=== PATIENT | female | born 1945 | race Caucasian/White ===

== ENCOUNTER 2019-07-02 17:11 | Inpatient (IN) ==
--- NOTE | 2019-07-02 17:41 | PROVIDER DOCUMENTATION ---
HPI-Rash/Wound/ReCheck - General Chief Complaint: Laceration[s] Stated Complaint: L-FINGER CUT/SCISSORS Time Seen by Provider: 07/02/19 17:32 Source: patient Allergies/Adverse Reactions: Allergies Allergy/AdvReac Type Severity Reaction Status Date / Time codeine [Codeine] Allergy ANAPHYLAXIS Verified 07/02/19 21:54 seafood Allergy ANAPHYLAXIS Uncoded 07/02/19 21:54 Home Medications: Home Medication List Medication Instructions Recorded Confirmed Last Taken Type Aspirin 81 mg PO DAILY 02/08/18 07/02/19 Unknown History Doxazosin Mesylate 2 mg PO DAILY 02/08/18 07/02/19 Unknown History Gabapentin 300 mg PO BID 02/08/18 07/02/19 Unknown History Tramadol HCl 50 mg PO Q6H PRN PRN 02/08/18 07/02/19 Unknown History Ropinirole [Requip] 2 mg PO QHS tablet 02/14/18 07/02/19 Unknown Rx Alendronate Sodium [Fosamax] 70 mg PO DIRECTED 07/02/19 07/02/19 06/28/19 08:00 History Celecoxib 200 mg PO DAILY 07/02/19 07/02/19 Unknown History Diphenhydramine [Benadryl] 25 mg PO Q4H PRN PRN 07/02/19 07/02/19 Unknown History Dulaglutide [Trulicity] 0.75 mg SQ DIRECTED 07/02/19 07/02/19 06/28/19 08:00 History Furosemide [Lasix] 20 mg PO DAILY 07/02/19 07/02/19 Unknown History Hydrochlorothiazide 25 mg PO DAILY 07/02/19 07/02/19 Unknown History Metoclopramide [Reglan] 10 mg PO BID 07/02/19 07/02/19 Unknown History Multivitamin [Multi-Vitamin Daily] 1 ea PO DAILY 07/02/19 07/02/19 Unknown History Omeprazole 40 mg PO DAILY 07/02/19 07/02/19 Unknown History Pravastatin Sodium 40 mg PO DAILY 07/02/19 07/02/19 Unknown History - History of Present Illness-Dermatology Nature of Presenting Problem: Patient is a 73yo F who presents for a laceration to L hand 2nd finger, which occurred just [employer]. Reports she cut her finger on scissors. States she was having difficulty stopping bleeding d/t ASA usage. Reports she is UTD on Tetanus. Bleeding controlled upon examination. Location: reports: hands (L 2nd finger) Quality: reports: stinging Severity: reports: mild Onset/Duration: reports: just prior to arrival Timing: reports: still present Context/Associated Symptoms: reports: laceration Identifiable cause?: Yes (scissors) Locality of Occurance: Home Similar Symptoms Previously?: No Recently seen or treated by another doctor?: No Review of Systems - Adult - REVIEW OF SYSTEMS - ADULT Constitutional: reports: no symptoms reported. denies: chills, fever Eyes: reports: no symptoms reported Ears, Nose, Mouth & Throat: reports: no symptoms reported Cardiovascular: reports: no symptoms reported. denies: chest pain, palpitations Respiratory: reports: no symptoms reported. denies: cough, shortness of breath Gastrointestinal: reports: no symptoms reported Genitourinary: reports: no symptoms reported Musculoskeletal: reports: no symptoms reported Integumentary: reports: see HPI, skin sores/ulcer Neurological: reports: no symptoms reported Psychiatric: reports: no symptoms reported Endocrine: reports: no symptoms reported Past History - Adult - PAST MEDICAL HISTORY-ADULT Review of Records: reports: Nursing Assessment Review, Medications Reviewed, Social history reviewed & non-contributory. Major Childhood Illnesses: reports: denies history Cardiovascular: reports: HTN Respiratory: reports: asthma, COPD Gastrointestinal: reports: denies history Obstetrical/Gynecological: reports: other (breast cancer) Genitourinary: reports: denies history Musculoskeletal: reports: denies history Neurological: reports: CVA, Seizures/Epilepsy Psychiatric: reports: anxiety, psychiatric problems Endocrine/Immune: reports: Diabetes Other Conditions: reports: denies history - PRIOR SURGERIES/PROCEDURES Surgical/Procedure History: reports: , tonsillectomy, breast (reduction), other (mastectomy) - IMMUNIZATION STATUS Childhood Immunizations: See Nurse Assessment Flu Vaccine: See Nurse Assessment - FAMILY HISTORY Family History: reviewed, not pertinent - SOCIAL HISTORY Smoking: denies, non-smoker Physical Exam-General - PHYSICAL EXAM-ADULT Initial Vital Signs Reviewed: Yes - CONSTITUTIONAL General Appearance: appears well, alert, no apparent distress. negative: lethargic, slow to respond, obtunded - EYES Eyes: PERRL/EOMI, pink conjunctivae. negative: EOM palsy, scleral icterus - HEAD, EARS, NOSE, MOUTH & THROAT HENMT: normocephalic/atraumatic, moist mucous membranes. negative: angioedema - NECK Neck: full range of motion, supple, normal inspection - RESPIRATORY Respiratory: chest non-tender, lungs clear, normal breath sounds, no pleuratic chest pain, no respiratory distress, no accessory muscle use. negative: crackles, rales, rhonchi, stridor, wheezing - CARDIOVASCULAR Cardiovascular: tachycardia (148) - MUSCULOSKELETAL Back Exam: normal inspection Extremity: normal range of motion, normal gait, tenderness (L second finger pad) Peripheral Pulses: radial (R): 2+, radial (L): 2+ - SKIN Integumentary: normal color, warm/dry, laceration(s) (0.5cm laceration to L 2nd finger pad with bleeding controlled). negative: cyanosis, jaundice, pallor - NEUROLOGIC Neurologic: grossly normal. negative: abnormal gait, aphasia, EOM palsy - PSYCHIATRIC Psych/Mental Status: normal mood/affect, normal thought content, normal thought process, oriented x 3 Progress - PLAN OF CARE/RESULTS Progress/Plan/Lab Results: Vital Signs - 8 hr 07/02/19 17:21 07/02/19 18:24 07/02/19 19:25 Temperature 97.8 F Pulse Rate 148 H 146 H 146 H Respiratory Rate 18 19 20 Blood Pressure 162/96 170/135 168/108 O2 Sat by Pulse Oximetry 96 96 95 07/02/19 19:26 07/02/19 19:30 07/02/19 19:45 Temperature Pulse Rate 143 H 146 H 146 H Respiratory Rate 21 18 21 Blood Pressure O2 Sat by Pulse Oximetry 96 93 L 94 L 07/02/19 20:00 07/02/19 20:12 07/02/19 20:15 Temperature Pulse Rate 144 H 120 H 141 H Respiratory Rate 21 17 17 Blood Pressure 154/111 O2 Sat by Pulse Oximetry 95 95 93 L 07/02/19 20:30 07/02/19 20:31 07/02/19 20:45 Temperature Pulse Rate 122 H 117 H 145 H Respiratory Rate 28 H 23 20 Blood Pressure 141/101 O2 Sat by Pulse Oximetry 93 L 93 L 96 07/02/19 20:59 07/02/19 21:01 07/02/19 21:15 Temperature Pulse Rate 143 H 143 H 143 H Respiratory Rate 22 24 Blood Pressure 141/102 O2 Sat by Pulse Oximetry 95 95 95 07/02/19 21:45 07/02/19 21:46 Temperature Pulse Rate 149 H 152 H Respiratory Rate 17 25 H Blood Pressure 129/106 O2 Sat by Pulse Oximetry 95 95 Laboratory Results - last 24 hr 07/02/19 07/02/19 07/02/19 19:27 19:27 19:27 WBC 8.02 RBC 4.35 Hgb 12.0 Hct 37.5 MCV 86.2 MCH 27.6 MCHC 32.0 L RDW Std Deviation 13.5 Plt Count 244 MPV 9.4 Immature Gran % (Auto) 0.7 H Neut % (Auto) 62.3 Lymph % (Auto) 26.7 [place] % (Auto) 6.9 Eos % (Auto) 3.0 Baso % (Auto) 0.4 Immature Gran # (Auto) 0.06 H Neut # (Auto) 5.00 Lymph # (Auto) 2.14 [place] # (Auto) 0.55 Eos # (Auto) 0.24 Baso # (Auto) 0.03 Sodium 138 Potassium 5.4 H Chloride 96 L Carbon Dioxide 27 Anion Gap 15 BUN 31 H Creatinine 2.0 H Estimated GFR/1.73 m2 25 BUN/Creatinine Ratio 16 Glucose 132 H POC Glucose Calculated Osmolality 284 Calcium 9.4 Total Bilirubin 0.33 AST 44 H ALT 20 Alkaline Phosphatase 71 Troponin T High Sens 29 H* [id number] Pept Total Protein 7.1 Albumin 4.1 Globulin 3.0 Albumin/Globulin Ratio 1.4 TSH 07/02/19 07/02/19 07/02/19 19:27 19:27 20:08 WBC RBC Hgb Hct MCV MCH MCHC RDW Std Deviation Plt Count MPV Immature Gran % (Auto) Neut % (Auto) Lymph % (Auto) [place] % (Auto) Eos % (Auto) Baso % (Auto) Immature Gran # (Auto) Neut # (Auto) Lymph # (Auto) [place] # (Auto) Eos # (Auto) Baso # (Auto) Sodium Potassium Chloride Carbon Dioxide Anion Gap BUN Creatinine Estimated GFR/1.73 m2 BUN/Creatinine Ratio Glucose POC Glucose 152 H Calculated Osmolality Calcium Total Bilirubin AST ALT Alkaline Phosphatase Troponin T High Sens [id number]-Kfhleoemyik Pept 677 H Total Protein Albumin Globulin Albumin/Globulin Ratio TSH 1.14 Orders Category Date Time Status Cardiac Monitoring DIRECTED Care 07/02/19 18:14 Active FSBS [Finger Stick Blood Sugar (ED)] DIRECTED Care 07/02/19 18:15 Active Laceration Set up DIRECTED Care 07/02/19 19:15 Active Repeat Vital Signs .Heart Rate Care 07/02/19 17:39 Active Update & Confirm Home Medicati ROUTINE Care 07/02/19 20:23 Active CHEST-2 VIEWS [RAD] Stat Exams 07/02/19 18:20 Completed CBC WITH ELECTRONIC DIFF [HEME] Stat Lab 07/02/19 19:27 Completed COMPREHENSIVE METABOLIC PANEL [CHEM] Stat Lab 07/02/19 19:27 Completed PRO B-NATRIURETIC PEPTIDE Stat Lab 07/02/19 19:27 Completed TROPONIN T HIGH SENSITIVITY Stat Lab 07/02/19 19:27 Completed TSH Stat Lab 07/02/19 19:27 Completed Digoxin [Lanoxin] Med 07/02/19 20:46 Discontinued 125 microgm IV ONCE ONE Diltiazem [Cardizem] Med 07/02/19 20:23 Discontinued 10 mg IV NOW ONE Furosemide [Lasix] Med 07/02/19 20:19 Discontinued 40 mg IV NOW ONE Lidocaine 1% Pf [Xylocaine-Mpf 1%] Med 07/02/19 19:15 Discontinued 5 ml INJ NOW ONE Metoprolol [Lopressor] Med 07/02/19 20:11 Discontinued 5 mg .ROUTE .STK-MED ONE Metoprolol [Lopressor] 10 mg Med 07/02/19 19:58 Discontinued 0.9% Sodium Chloride Inj [Ns] 50 ml IV NOW EKG [EKG] Stat Ther 07/02/19 18:02 Draft Transfer/Admit Order [TRANSFER] Routine Transfer 07/02/19 20:49 Ordered 1820: Patient's initial triage HR was 148 and thought to be an error. Rechecked HR is 148. BP slightly elevated. Patient reports she feels completely fine, other than her finger hurting from laceration. Denies CP, SOB, palpitations, n/v. EKG ordered and patient moved to main ED. Lab results, plan of care, and need for admission discussed with patient who agrees with and verbalizes understanding. Patient discussed with Dr. Cavazos who recommends 10mg IV Metoprolol for rate control and 40mg IV Lasix for hyperkalemia. Result Diagrams: 07/02/19 19:27 07/02/19 19:27 - REASSESSMENT Reassessment #1 Time Reassessed: 20:00 Status: unchanged Reassessment Comment: HR decreased to 139bpm post Metoprolol - XRAY 1 XRAY: Bilateral XRAY Study: Chest Impression: See EMR Report ([facility] - [address], [address], [place] [address] [facility] - [address] , [place] [address] Department of Imaging Patient: SAGAR ARMANDO Date: 07/02/19MR#: [id number] : 8ADM Status: PRE ERAcct#: [id number] Age/Sex: 73/FRoom/Bed: Loc: ED Ordering Physician: Ghada Rodriguez Family Physician: Fazal Aden MD Reason for Procedure: Tachycardia; diminised breath sounds R Signed EXAM: CHEST-2 VIEWS HISTORY: Tachycardia; diminised breath sounds R TECHNIQUE: Chest two views COMPARISON: 02/11/2018 FINDINGS: The lungs are hyperexpanded. The heart is mildly enlarged. The vessels are not distended. There are no infiltrates. No pleural effusions. There are surgical clips in the left axilla. IMPRESSION: Cardiomegaly Electronically signed by Ok Olmos 07/02/2019 6:50 PM 07/02/19 1850 Interpreting Physician: Ok Olmos MD Dictated Date/Time: 07/02/19 1849 cc: Ghada Parr; Fazal Aden MD) - CONSULTS/PCP/HOSPITALIST Notification #1 *Consult/PCP/Hospitalist*: Sariah Sharmaist Time Discussed: 20:25 Reason/Comments: Tachycardia; hyperkalemia Consult Disposition: Admit (Give 10mg IV Cardizem, update home meds, order TSH) Procedures - LACERATION/WOUND REPAIR/FB Left Finger Wound Location: Other: 2nd Wound Length: 0.5cm Wound's Depth, Shape: irregular (curved) Wound Explored/Foreign Body: clean Irrigated with Saline?: Yes Prepped with: Hibiclens Anesthetic: 1%, Lidocaine/Xylocaine Volume of Anesthetic (ml's): 2 Wound Debrided: minimal Wound Repaired with: Sutures Suture Size/Type: 5.0, Non-Absorbable, Nylon Number of Sutures: 1 Layer Closure?: No Sterile Dressing Applied?: Yes Splint Applied?: No Sling Applied?: No Post Procedure Neurovascular Exam: Intact Departure - Departure Date of Disposition Decision: 07/02/19 Time of Disposition Decision: 20:27 DIAGNOSIS: History of anticoagulant use, Cardiomegaly, Hyperkalemia, Renal insufficiency Finger laceration Qualifiers: Encounter type: initial encounter Finger: index finger Damage to nail status: without damage Foreign body presence: without foreign body Laterality: left Qualified Code(s): S61.211A - Laceration without foreign body of left index finger without damage to nail, initial encounter CHF (congestive heart failure) Qualifiers: Heart failure type: unspecified Heart failure chronicity: acute Qualified Code(s): I50.9 - Heart failure, unspecified Disposition: ADMITTED INPATIENT 09 Certified Medical Emergency: Emergent Condition: Stable - Critical Care Note This patient required my direct & personal management of CC.: No Attestation - Physician/ SIMONA Attestation Patient care was provided by Advanced Practice Provider:: Yes Advanced Practice Provider:: Ghada Parr Advanced Practice Provider documentation review:: The Mid-level provider documentation, treatment plan and medical decision making was reviewed by the physician who agrees with all treatment and medical decision making by the MLP. The physician spent face to face time with patient:: No Advanced Practice Provider documentation review:: Supervising physician onsite and consulted in the evaluation and care of this patient. The physician did not have a face to face encounter with the patient.
--- NOTE | 2019-07-02 18:52 | Diag Imaging Result Doc PS360 ---
EXAM: CHEST-2 VIEWS HISTORY: Tachycardia; diminised breath sounds R TECHNIQUE: Chest two views COMPARISON: 02/11/2018 FINDINGS: The lungs are hyperexpanded. The heart is mildly enlarged. The vessels are not distended. There are no infiltrates. No pleural effusions. There are surgical clips in the left axilla. IMPRESSION: Cardiomegaly Electronically signed by Ok Olmos 07/02/2019 6:50 PM
[2019-07-02] MEDS ORDERED: XYLOCAINE-MPF 1% INJ ONE (19:15)
--- NOTE | 2019-07-02 19:29 | EKG Report ---
Test Performed on : 07/02/2019 6:07:14 PM Test Reason : tachycardia Blood Pressure : / mmHG Vent. Rate : 146 BPM Atrial Rate : 146 BPM P-R Int : 118 ms QRS Dur : 080 ms QT Int : 290 ms P-R-T Axes : 084 039 095 degrees QTc Int : 451 ms Sinus tachycardia. Nonspecific ST and T wave abnormality Abnormal ECG When compared with ECG of 27-JUL-2015 22:27, Sinus rhythm. has replaced Junctional rhythm. Vent. rate has increased BY [address] now depressed in Lateral leads Nonspecific T wave abnormality now evident in Inferior leads Unconfirmed Result
[2019-07-02 19:37] LABS: BASO# 0.03 X1000 (0.0-0.2); BASO% 0.4 % (0.0-0.8); EOS# 0.24 X1000 (0.0-0.7); HEMATOCRIT 37.5 % (37.0-47.0); IMM GRAN# 0.06 X1000 (0.0-0.04); IMM GRAN% 0.7 % (0.0-0.5); LYMPH# 2.14 X1000 (1.2-3.4); LYMPH% 26.7 % (20.5-51.1); MCH 27.6 PG (27-31); MCV 86.2 FL (81-99); MONO# 0.55 X1000 (0.11-0.59); MONO% 6.9 % (1.7-9.3); MPV 9.4 FL (7.4-10.4); NEUT% 62.3 % (42.2-75.2); PLT 244 X1000 (130-400); RBC 4.35 XMIL (4.2-5.4); RDW 13.5 % (11.5-14.5); WBC 8.02 X1000 (4.8-10.8)
[2019-07-02 19:58] LABS: ALB/GLOB RATIO 1.4; ALBUMIN 4.1 g/dL (3.5-5.0); CALCIUM 9.4 mg/dL (8.8-10.2); POTASSIUM 5.4 mmol/L (3.5-5.1); TOTAL BILIRUBIN 0.33 mg/dL (0.20-1.00); TOTAL PROTEIN 7.1 g/dL (6.3-8.3)
[2019-07-02] MEDS ORDERED: LOPRESSOR 10 MG in NS 50 ML IV ONE (19:58)
[2019-07-02] MEDS ORDERED: LOPRESSOR ONE (20:11)
[2019-07-02] MEDS ORDERED: LASIX IV ONE (20:19)
[2019-07-02] MEDS ORDERED: CARDIZEM IV ONE (20:23)
[2019-07-02] MEDS ORDERED: LANOXIN IV ONE (20:46)
--- NOTE | 2019-07-02 21:58 | HISTORY AND PHYSICAL ---
REASON FOR ADMISSION: Persistent tachycardia. HISTORY OF PRESENT ILLNESS: Ms. Zainab Bonilla is a 73-year-old woman with past medical history of prior CVAs x2, severe sleep apnea on CPAP, hypertension with chronic kidney disease, type 2 diabetes, breast cancer and a history of recurrent UTIs. She comes in today primarily to get a laceration of her 2nd finger, which was sustained by accidentally catching the said finger with a pair of scissors while sewing. During her evaluation, heart rate was noted to be in the 130s to 140s. Patient, oddly enough, denies any current cardiorespiratory complaints, i.e., palpitations, lightheadedness, nausea, diaphoresis, chest pain, or active shortness of breath at rest. She states she has a longstanding history of chronic orthopnea for the last couple of years, but thinks that this may be getting a little bit worse. She does comment that her dyspnea on exertion has been getting worse, i.e. that she walks shorter distances and gets profoundly short of breath over the last couple of months. She denies any PND, but thinks that now it might be due to the fact that she is on the CPAP at night. She is also taking intermittent occasional home O2 at night as recommended by primary care physician over the last 1 year. She denies any lower extremity swelling or redness in her extremities. He denies any cough, fever, or chills. She denies any recent change in her medications. REVIEW OF SYSTEMS: Notable for greater than 1 month history of dysphagia to solids, usually in her throat. No weight loss. No other GI complaints or complaints at this time. No focal neurological complaints. Otherwise, 12 system review was done with positive findings per HPI. ALLERGIES: Codeine and seafood. PAST MEDICAL HISTORY: See above. FAMILY HISTORY: Notable for heart disease in parents. SOCIAL HISTORY: Does not smoke, drink, or use illicit drugs. She recently got 3 years ago. SURGICAL HISTORY: 1. Mastectomy over 26 years ago. 2. . 3. Total knee replacement. 4. Tonsillectomy. 5. Breast reduction and reconstruction. EKG shows sinus tachycardia with a rate close to 150, nonspecific ST changes in the high lateral leads. Chest film shows cardiomegaly with slightly increased vascular markings. White count is 8000, hemoglobin and hematocrit 12 and 37, platelets 244,000, with normal differential. Potassium is 5.4, BUN is 31, creatinine 2.0, glucose 132, AST 44, ALT 20, troponins 29, proBNP 677. PHYSICAL EXAMINATION: VITAL SIGNS: Blood pressure 160/108, heart rate 146, respiratory rate 20, temperature is 97.8. She is 92% on 2 L. GENERAL: Pleasant, morbidly obese woman who is not in acute distress. She is awake, alert and oriented x3 with normal mood and affect. HEAD: Normocephalic, atraumatic. EYES: PERRL, EOMI. She is anicteric, but mildly pale. ENT: Exam is grossly normal. No central cyanosis noted. NECK: Short and thick. No visible JVD. No bruit or thyromegaly appreciated. CHEST: Surprisingly clear. CARDIOVASCULAR: First and second heart sounds are heard. Rhythm is regular, tachycardic. ABDOMEN: Protuberant, soft, with tenderness confined to the epigastrium and right upper quadrant area. I could not appreciate any masses. Bowel sounds are normal. RECTAL: Deferred at this time. No peritoneal signs are noted. EXTREMITIES: Patient has good distal pulse volumes, symmetrical, regular. No edema, clubbing, or cyanosis. NEUROLOGICAL: No gross focal deficits of acute nature noted. SKIN: Intact. No breakdown, lesion, erythema. Skin exam is grossly normal. ASSESSMENT AND PLAN: 1. Persistent sinus tachycardia, etiology to be determined. Suspect cardiovascular etiology, i.e. mild early onset congestive heart failure. Cannot rule out pulmonary embolus. Patient denied any extremity redness or pain. Suggested her Wells criteria score is not particularly high, and makes it less likely. However, D-dimer has been ordered and is pending. Another thing of note that concerns me is that this patient has had recurrent cerebrovascular accidents, and I will just take the liberty of just giving a one time dose of Eliquis pending the D-dimer report and any other workup that may hint toward thromboembolic event or a cardioembolic event or cerebrovascular accident. We will start the patient on Cardizem and may add on beta blockers to achieve lower heart rate. If this fails, and the patient is able to tolerate this tomorrow morning, possibly maybe elective cardioversion may be done if other etiologies have been ruled out. TSH is pending. 2. Chronic kidney disease, stage 4. Avoid any nephrotoxic medications. May consult or refer to Dr. Mayo as an outpatient. 3. Hypertensive heart and kidney disease. The patient's home medication list has not been reconciled. Will start any necessary medications that will achieve rate control without nephrotoxicity. 4. Obstructive sleep apnea. The patient will use CPAP tonight. 5. Type 2 diabetes. I believe it is diet-controlled. 6. Mild early onset congestive heart failure. Start Lasix. Echocardiogram ordered. Cardiology to see in the morning. 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 cc: MD Fazal King MD MTDD
[2019-07-02] MEDS ORDERED: ELIQUIS PO ONE (23:12)
[2019-07-02] MEDS ORDERED: LASIX IV SCH (23:12)
[2019-07-02] MEDS: TYLENOL PO PRN (23:37)
[2019-07-02] MEDS: CARDIZEM PO SCH (23:37)
[2019-07-02] MEDS: PRILOSEC PO SCH (23:37)
[2019-07-03] MEDS: CARDIZEM PO SCH (05:00)
--- NOTE | 2019-07-03 05:00 | EKG Report ---
Test Performed on : 07/03/2019 03:57:28 AM Test Reason : Rhythm change Blood Pressure : / mmHG Vent. Rate : 121 BPM Atrial Rate : 293 BPM P-R Int : 000 ms QRS Dur : 088 ms QT Int : 348 ms P-R-T Axes : 000 057 108 degrees QTc Int : 494 ms Atrial flutter. with variable AV block. Nonspecific ST and T wave abnormality Abnormal ECG When compared with ECG of 02-JUL-2019 18:07, (Unconfirmed) Atrial flutter. has replaced Sinus rhythm. Nonspecific T wave abnormality no longer evident in Inferior leads Confirmed by John SOLOMON, Leonel Doss ([id number]) on 07/04/2019 6:55:18 PM
[2019-07-03] MEDS ORDERED: CARDIZEM IV ONE (05:02)
[2019-07-03] MEDS: CARDIZEM 100 MG/NS 100 MG/100 ML IVPB IV SCH ×3 (05:49→19:29)
[2019-07-03 06:32] LABS: BASO# 0.04 X1000 (0.0-0.2); BASO% 0.4 % (0.0-0.8); EOS# 0.26 X1000 (0.0-0.7); EOS% 2.9 % (0.0-10.0); HEMOGLOBIN 12.4 g/dL (12.0-16.0); IMM GRAN# 0.05 X1000 (0.0-0.04); IMM GRAN% 0.6 % (0.0-0.5); LYMPH# 2.72 X1000 (1.2-3.4); MCHC 32.6 g/dL (33-37); MCV 85.8 FL (81-99); MONO# 0.71 X1000 (0.11-0.59); MONO% 7.8 % (1.7-9.3); MPV 9.2 FL (7.4-10.4); NEUT% 58.3 % (42.2-75.2); PLT 250 X1000 (130-400); RBC 4.43 XMIL (4.2-5.4); RDW 13.5 % (11.5-14.5); WBC 9.08 X1000 (4.8-10.8)
[2019-07-03] MEDS: ZOFRAN IV PRN ×3 (06:48→22:15)
[2019-07-03 07:09] LABS: CALCIUM 9.3 mg/dL (8.8-10.2); CREATININE 1.9 mg/dL (0.5-0.9); POTASSIUM 3.6 mmol/L (3.5-5.1)
--- NOTE | 2019-07-03 08:24 | Diag Imaging Result Doc PS360 ---
EXAM: US ABDOMEN-COMPLETE INDICATION: RUQ tenderness COMPARISON: 07/25/2015 FINDINGS: The gallbladder appears normal with no stones, wall thickening, or pericholecystic fluid. The common bile duct is somewhat dilated measuring up to 9 mm in diameter. Sonographic Culp's sign was reported to be negative. The liver is somewhat prominent measuring up to 20 cm in length. No discrete hepatic mass is identified. Portal venous flow is hepatopetal. The visualized portion of the pancreas is unremarkable. The distal aorta is obscured. The remainder of the aorta and IVC are unremarkable. The spleen is unremarkable. There is a 1.8 cm left renal cyst. The kidneys are essentially unremarkable, otherwise. IMPRESSION: 1.Unremarkable gallbladder. However, the common bile duct is somewhat dilated. 2.Mildly prominent liver. Electronically signed by Jon Alanis 07/03/2019 8:22 AM
[2019-07-03] MEDS: PRILOSEC PO SCH ×2 (08:26→20:01)
--- NOTE | 2019-07-03 09:23 | Diag Imaging Result Doc PS360 ---
EXAM: CT THORAX W/O CONTRAST INDICATION: hypoxia TECHNIQUE: This exam was performed using automated exposure control, adjustment of mA or kV according to patient size, and/or use of iterative reconstruction technique. COMPARISON: None. FINDINGS: There is mild bibasilar subsegmental atelectasis and/or scarring. There is a calcified granuloma at the superior aspect of the left lower lobe. The lungs are grossly clear, otherwise. There is no pleural fluid collection and no pneumothorax. There are calcified mediastinal and left hilar lymph nodes indicating prior granulomatous disease. No significant lymphadenopathy is identified as imaged with unenhanced CT, otherwise. There is no cardiomegaly. Limited views of the upper abdomen are essentially unremarkable. There is thoracic spondylosis. There is no evidence of acute osseous abnormality. A left breast prosthesis is noted. IMPRESSION: Mild bibasilar subsegmental atelectasis and/or scarring. No definite acute pathology by unenhanced CT, otherwise. Electronically signed by Jon Alanis 07/03/2019 9:21 AM
[2019-07-03] MEDS ORDERED: TOPROL XL PO ONE (09:42)
[2019-07-03] MEDS ORDERED: APRESOLINE IV PRN (09:44)
[2019-07-03] MEDS ORDERED: LASIX IV ONE (09:47)
[2019-07-03] MEDS ORDERED: KLOR-CON PO ONE (09:55)
[2019-07-03] MEDS: ELIQUIS PO SCH ×2 (10:06→20:03)
[2019-07-03] MEDS: NEURONTIN PO SCH ×2 (10:06→20:12)
[2019-07-03] MEDS: LASIX IV SCH ×2 (10:06→20:09)
[2019-07-03] MEDS: ASPIRIN PO SCH (10:06)
[2019-07-03] MEDS ORDERED: LANOXIN IV ONE (13:54)
--- NOTE | 2019-07-03 13:57 | PROGRESS NOTE ---
DATE: 07/03/2019 SUBJECTIVE: A 73-year-old female patient, came to the ER for repair of the laceration on her finger with pair of scissors while sewing. While patient was in the ER, patient found to have significant tachycardia. On detailed questioning, patient also found to have more shortness of breath, dyspnea on exertion, some orthopnea. The patient does have sleep apnea. She is using CPAP. The patient was admitted for further workup. The patient does have a complex medical history in the form of prior 2 CVA, sleep apnea, hypertension, chronic kidney disease, diabetes mellitus, history of breast cancer, recurrent UTI. The patient is vague and poor historian. Lately patient was also complaining of dysphagia. She is scheduled to see adoption coordinator next week. Admission history physical noted. OBJECTIVE: Vital Signs: Blood pressure 115/88, respiratory rate was 20, temperature 98.6 degrees, her O2 saturation was satisfactory. Skin: No rash or petechiae. Neck: Supple. No JVD. Lungs: Bibasilar crepitations. Heart: S1 and S2. Tachycardia. Abdomen: Soft, globular. Bowel sounds present. Central nervous system: Alert, awake, able to move all 4 limbs. CONSIDERATION: Patient had tachycardia, possibility of paroxysmal atrial fibrillation cannot be ruled out. I am going to add Eliquis. Waiting for water pipe installer evaluation. At time, patient blood pressure was very high. Her heart rate is also high with Cardizem. I am going to add a small dose of beta sanaz. Gave her small dose of IV Lasix. Her other problems include history of breast cancer, restless legs syndrome on Requip, dysphagia needing further workup. The patient had gallbladder ultrasound done, results reviewed. I did discuss results with the patient. She had a noncontrast CT scan of the chest which revealed basilar subsegmental atelectasis and/or scarring, otherwise no definite acute pathology. It was without contrast because of her chronic kidney disease. LABORATORY DATA: D-dimer was 0.91. Her BUN 32, creatinine 1.9. Troponin was minimally elevated. TSH 1.14. PLAN: I discussed plan at length with the patient and she is in agreement. cc: MD Fazal Cason MD
--- NOTE | 2019-07-03 14:36 | CARDIOLOGY CONSULTATION ---
DATE: 07/03/2019 HISTORY OF PRESENT ILLNESS: Ms. Bonilla is a 73-year-old lady, who came to the hospital primarily to get a laceration of her 2nd finger, which she sustained while knitting. While she was being evaluated in the emergency room, she was noted to have a heart rate of 132-140 with atrial fibrillation. Started on a Cardizem drip. She does not perceive any palpitations. Denies any chest pain. She has had chronic shortness of breath given her obesity, sleep apnea and other medical problems. She has no previous cardiac history. She denies any chest pain. REVIEW OF SYSTEM: General: A 14-point review of systems was done. GI System: There is no history of nausea, vomiting or diarrhea. There is no history of hematemesis or melena. Central nervous system: No focal weakness to suggest a CVA or TIA. System: There is no dysuria or hematuria. PAST MEDICAL HISTORY: 1. Prior CVAs x2. 2. Obesity. 3. Sleep apnea on CPAP machine. 4. Hypertension. 5. Chronic kidney disease. 6. Diabetes. 7. History of breast cancer. 8. History of recurrent UTI. 9. She is allergic to codeine and seafood. PAST SURGICAL HISTORY: Other surgeries include: 1. Mastectomy. 2. Total knee replacement. 3. Tonsillectomy. 4. Breast reduction surgery and reconstruction. 5. . HOME MEDICATIONS: Include Lasix 20 mg a day, pravastatin 40, hydrochlorothiazide 25, omeprazole 40, metoclopramide 10 mg p.o. b.i.d., Trulicity as directed, Fosamax, Requip 2 mg at bedtime, doxazosin, aspirin, gabapentin, tramadol. PHYSICAL EXAMINATION: Vital Signs: Blood pressure was 117/72, heart rate 120 to 130 beats per minute in atrial fibrillation. Cardiovascular: First and second heart sounds were heard. There was no gallop. Respiratory System: Examination revealed distant breath sounds. Chest was clear. Abdomen: Soft, protuberant, nontender. Bowel sounds were heard. Central nervous system: Alert and oriented, was moving all 4 extremities. Detailed central nervous system examination not performed. ASSESSMENT: Ms. Zainab Bonilla is a 73-year-old lady with history of cerebrovascular accident in the past, obstructive sleep apnea, hypertension, chronic kidney disease, history of breast cancer, who came in for injury to her finger while sewing. She was noted to be in atrial fibrillation with rapid ventricular rate. Cardizem drip was started she continues to be having a heart rate varying from 120 to 130 beats per minute. PLAN: 1. We will give her digoxin 0.25 mg IV now and 0.125 mg daily. I had a detailed discussion with her as well. We will plan for a CHARANJIT cardioversion on Friday. 2. She has an elevated CHADS2-VASc score and she has been started on Eliquis. We would recommend continuing Eliquis for stroke prophylaxis. 3. Hypertension. Continue with the current dosage of medications of Cardizem, and once she is cardioverted we will adjust medications accordingly. 4. She has chronic kidney disease. Creatinine is 1.9, BUN 32. Sodium 138, potassium 3.6, calcium 9.3. Troponin T high sensitivities were normal. Thyroid profile: TSH was 1.14. 5. Hematology: WBC 9, hemoglobin 12.4, hematocrit 38, platelet count of 250. 6. She had a CT scan of her chest which revealed mild bibasilar atelectasis. No definite pathology noted. 7. We will also get an echocardiogram to assess cardiac and valvular function. 8. She has obstructive sleep apnea. Uses CPAP machine. I have not made any other changes to her medications. cc: MD Fazal Parrish MD
--- NOTE | 2019-07-03 16:42 | ECHO REPORT ---
ORDER DATE: 07/03/2019 INTERPRETING PHYSICIAN: Bruce Jordan MD. ECHOCARDIOGRAPHIC MEASUREMENTS: 1. Interventricular septum 1.3. 2. Left ventricular posterior wall 1.2. 3. Diastolic diameter 4.4 4. Left atrium 4.2. 5. Aorta 3.1. 6. Left atrium was enlarged. 7. Tricuspid valve was normal. 8. Mitral valve was normal. SUMMARY OF THE 2-DIMENSIONAL FINDINGS: 1. Atrial flutter/fibrillation was noted. 2. Normal left ventricular cavity size. 3. Mild left ventricular hypertrophy. Estimated ejection fraction of 55 to 60 percent. There is mild mitral regurgitation. 4. Mild tricuspid regurgitation. Peak velocity across the tricuspid valve was less than 2 m/sec. There is mild tricuspid regurgitation. Peak velocity across the tricuspid valve was 2.5 m/sec. 5. Pulmonary artery systolic pressure of 35 to 40 mmHg. 6. There is no aortic stenosis or regurgitation. Normal right ventricular cavity size and function. 7. There is mild mitral regurgitation. 8. Given the atrial fibrillation, cannot comment on the diastolic dysfunction. 9. Anterior echo-free space suggestive of pericardial fat pad was noted. 10. There is no pericardial effusion, or obvious intracardiac mass or thrombus seen. cc: MD Yumiko Parrish MD Robert Allen, MD
[2019-07-03] MEDS: ULTRAM PO PRN ×2 (17:31→23:48)
[2019-07-03] MEDS: TYLENOL PO PRN (19:55)
[2019-07-03] MEDS: REQUIP PO SCH (20:02)
[2019-07-03] MEDS: PRAVACHOL PO SCH (20:02)
[2019-07-04] MEDS: CARDIZEM 100 MG/NS 100 MG/100 ML IVPB IV SCH ×2 (02:00→14:52)
[2019-07-04 06:27] LABS: BASO# 0.04 X1000 (0.0-0.2); BASO% 0.5 % (0.0-0.8); EOS# 0.33 X1000 (0.0-0.7); EOS% 3.8 % (0.0-10.0); HEMATOCRIT 35.3 % (37.0-47.0); HEMOGLOBIN 11.2 g/dL (12.0-16.0); IMM GRAN# 0.03 X1000 (0.0-0.04); IMM GRAN% 0.3 % (0.0-0.5); LYMPH# 3.21 X1000 (1.2-3.4); LYMPH% 37.2 % (20.5-51.1); MCH 27.8 PG (27-31); MCHC 31.7 g/dL (33-37); MCV 87.6 FL (81-99); MONO# 0.59 X1000 (0.11-0.59); MONO% 6.8 % (1.7-9.3); MPV 9.2 FL (7.4-10.4); NEUT# 4.44 X1000 (1.4-6.5); NEUT% 51.4 % (42.2-75.2); PLT 246 X1000 (130-400); RBC 4.03 XMIL (4.2-5.4); RDW 13.5 % (11.5-14.5); WBC 8.64 X1000 (4.8-10.8)
[2019-07-04 07:27] LABS: ALB/GLOB RATIO 1.2; ALBUMIN 3.6 g/dL (3.5-5.0); CALCIUM 8.9 mg/dL (8.8-10.2); CREATININE 2.1 mg/dL (0.5-0.9); MAGNESIUM 1.5 mg/dL (1.5-2.7); TOTAL BILIRUBIN 0.46 mg/dL (0.20-1.00); TOTAL PROTEIN 6.5 g/dL (6.3-8.3)
[2019-07-04] MEDS: TYLENOL PO PRN (07:36)
[2019-07-04] MEDS: LANOXIN IV SCH (08:54)
[2019-07-04] MEDS: NEURONTIN PO SCH ×2 (08:54→20:43)
[2019-07-04] MEDS: ELIQUIS PO SCH ×2 (08:55→20:43)
[2019-07-04] MEDS: PRAVACHOL PO SCH (08:55)
[2019-07-04] MEDS: CARDURA PO SCH (08:55)
[2019-07-04] MEDS: ASPIRIN PO SCH (08:55)
[2019-07-04] MEDS: THERA M PLUS PO SCH (08:55)
[2019-07-04] MEDS: PRILOSEC PO SCH ×3 (08:55→08:57)
[2019-07-04] MEDS ORDERED: HYDROCHLOROTHIAZIDE PO SCH (09:00)
[2019-07-04] MEDS: ULTRAM PO PRN ×2 (09:03→20:54)
[2019-07-04] MEDS: ZOFRAN IV PRN ×2 (09:51→17:18)
--- NOTE | 2019-07-04 11:10 | PROGRESS NOTE ---
DATE: 07/04/2019 SUBJECTIVE: Overall is feeling better today. Her shortness of breath and palpitations improved. No high-grade fever or chills. No typical chest pain. Denied any nausea or vomiting. The patient is tolerating food well, but still having problem with dysphagia. No diarrhea, blood or mucus in the stool. Appreciate Cardiology's help managing the patient. Patient admitted with tachycardia, found to have atrial fibrillation with rapid ventricular response. PAST MEDICAL HISTORY: Noted. MEDICATIONS: Noted. OBJECTIVE: Vital Signs: Blood pressure 102/62, pulse 71, respirations 18, temperature 97.4 degrees. Neck: Supple. No JVD, thyromegaly, or lymphadenopathy. Chest: Bibasilar crepitation. Heart: S1 and S2 regular. Abdomen: Soft, globular. Bowel sounds present. Extremities: No cyanosis, clubbing. No acute DVT. Crepitation in both the knee joints. SHAKE CUTTER: Alert, awake, able to move all 4 limbs. LABORATORY DATA: Lab data done today showed hemoglobin 11.2, hematocrit 35.3, WBC 8.64, platelets 246,000. Electrolytes were fairly benign. BUN 31, creatinine 2.1. PROBLEM LIST: 1. Atrial fibrillation with rapid ventricular response. The patient had echocardiogram done. Scheduled to have cardioversion tomorrow. 2. Dysphagia, gastritis, and reflux disease. 3. Restless legs syndrome, on Requip. Doing well. 4. Hyperlipidemia, on Pravachol. 5. Osteoarthritis. Overall, the patient is doing better. Will continue current treatment and close observation. Discussed fall precaution. Her other problem includes chronic kidney disease. cc: MD Fazal Cason MD
[2019-07-04] MEDS: REQUIP PO SCH (20:43)
--- NOTE | 2019-07-05 07:55 | PROGRESS NOTE ---
DATE: 07/05/2019 Vital signs stable with temperature 97.6 degrees, heart rate 76, respirations 17, blood pressure 138/84, O2 saturation 96% on CPAP. The patient was admitted with atrial fibrillation and congestive heart failure. There is also a history of chronic kidney disease stage 2. She has been seen by cardiology who plan esophageal echocardiogram and cardioversion today. Troponin and proBNP were elevated on admission. These may have been related some to chronic kidney disease. TSH was normal. The patient is breathing better but in general feels a little worse today after some medicine changes. She is on Eliquis and Cardizem. Also, she is on digoxin 0.125 mg daily. PLAN: Probably keep until tomorrow after cardioversion to ensure stability. cc: Fazal Aden MD
[2019-07-05] MEDS: LANOXIN IV SCH (08:42)
[2019-07-05] MEDS: THERA M PLUS PO SCH (08:43)
[2019-07-05] MEDS: PRAVACHOL PO SCH (08:43)
[2019-07-05] MEDS: NEURONTIN PO SCH ×2 (08:43→21:56)
[2019-07-05] MEDS: ASPIRIN PO SCH (08:43)
[2019-07-05] MEDS: CARDURA PO SCH (08:43)
[2019-07-05] MEDS: PRILOSEC PO SCH (08:43)
[2019-07-05] MEDS: ELIQUIS PO SCH ×2 (08:43→21:56)
[2019-07-05] MEDS ORDERED: DIPRIVAN 1% ONE (08:45)
[2019-07-05] MEDS ORDERED: NS 500 ML ONE (09:30)
[2019-07-05] MEDS ORDERED: ANESTHESIA PB SET 88 IN 5742 ONE (09:31)
--- NOTE | 2019-07-05 10:19 | CARDIAC CATH REPORT ---
DATE: 07/05/2019 PROCEDURE PERFORMED: Cardioversion. INDICATION: The patient is with persistent atrial fibrillation. This is a 73-year-old female. DESCRIPTION OF PROCEDURE: The patient was consented for this procedure by Dr. Jordan. She was brought to the cardiac pathology lab technician in the fasting state. She had been pretreated with Eliquis and Cardizem, and a CHARANJIT was requested prior to proceeding with the cardioversion. The CHARANJIT showed no evidence of thrombus. The patient received the IV propofol under the anesthesia services of Dr. Chacko. The pads were positioned in an anterior posterior location. She received a single synchronized countershock to the chest cage consisting of 150 kunz per second. The patient converted from atrial fibrillation into normal sinus rhythm. She woke up from the effects of anesthesia without deficit. SUMMARY: This was a successful cardioversion from atrial fibrillation into sinus rhythm. The patient tolerated the procedure well. She woke up from the effects of anesthesia without deficit. RECOMMENDATIONS: The patient will continue treatment as directed by Dr. Jordan. At this time, she is ordered to have Cardizem and Eliquis. cc: MD Fazal Benito MD
--- NOTE | 2019-07-05 10:24 | ECHO REPORT ---
ORDER DATE: 07/05/2019 PHYSICIAN: Dr. Cavazos REQUESTING PHYSICIAN: CLINICAL INDICATIONS: The patient is with persistent atrial fibrillation of uncertain duration. Evaluate for thrombus. The patient has been advised to pursue cardioversion. PROCEDURE: Transesophageal echocardiography DESCRIPTION: The patient was brought to the cardiac rags laborer in the fasting state. Her throat was anesthetized with viscous lidocaine and Hurricaine. She received intravenous propofol under the anesthesia services of Dr. Chacko. The esophagus was intubated without difficulty. Multiple views of the heart were obtained. The following is a summary of the findings. FINDINGS: Left atrium and the appendage are well visualized. They are free of thrombus. The flow velocity within the appendage is in the order of 30 to 50 cm per second. No spontaneous echocontrast is noted. There is no thrombus. The interatrial septum is intact. There is no evidence of shunt from right to left. Agitated saline was injected to optimize opacification of the right-sided chambers. The tricuspid valve was normal with mild degree of regurgitation. There is no evidence of pulmonary hypertension. Right ventricle appears to be normal in size and function. Pulmonic valve appears to be morphologically normal. Color flow mapping is unremarkable. Aortic valve has 3 cusps. They open normally. Color flow mapping is unremarkable. Mitral valve showed mild degree of regurgitation. The left ventricle shows excellent function. Ejection fraction is 60% to 65%. The pulmonary venous flow is normal. The descending thoracic aorta shows scattered atherosclerotic plaque without any obvious ulceration or deficit or debris. No pericardial effusion is noted. SUMMARY: This transesophageal echocardiogram shows no evidence of thrombus. Cardioversion may be carried out with a very low risk of cardioembolic phenomenon. cc: MD Bruce Benito MD Robert Allen, MD
[2019-07-05] MEDS: CARDIZEM 100 MG/NS 100 MG/100 ML IVPB IV SCH (10:57)
[2019-07-05] MEDS: ZOFRAN IV PRN ×2 (11:29→19:05)
[2019-07-05] MEDS: NS 1,000 ML IV SCH (11:39)
[2019-07-05] MEDS: CARDIZEM CD PO SCH (14:18)
[2019-07-05] MEDS: ULTRAM PO PRN (17:48)
--- NOTE | 2019-07-05 18:23 | PROGRESS NOTE ---
DATE: 07/05/2019 VITAL SIGNS: Temperature 97.6 degrees, heart rate 74 and regular, atrial fibrillation converted to sinus with cardioversion. Blood pressure 162/77, O2 saturation on 2 liters nasal oxygen 96%. The patient uses oxygen p.r.n. at home. The patient is feeling somewhat nauseated and believes it is her medicine, the Cardizem. It was changed from IV to p.o. Hopefully by tomorrow, her symptoms will improve. She is to have a stress test tomorrow. cc: Fazal Aden MD
[2019-07-05] MEDS: REQUIP PO SCH (21:56)
[2019-07-06] MEDS: NS 1,000 ML IV SCH (01:07)
--- NOTE | 2019-07-06 07:19 | EKG Report ---
Test Performed on : 07/06/2019 07:11:05 AM Test Reason : afib Blood Pressure : / mmHG Vent. Rate : 074 BPM Atrial Rate : 074 BPM P-R Int : 212 ms QRS Dur : 090 ms QT Int : 360 ms P-R-T Axes : 058 040 084 degrees QTc Int : 399 ms Sinus rhythm. with 1st degree AV block. Nonspecific ST and T wave abnormality Abnormal ECG When compared with ECG of 03-JUL-2019 03:57, Sinus rhythm. has replaced Atrial flutter. Vent. rate has decreased BY 47 BPM Nonspecific T wave abnormality, improved in Lateral leads Confirmed by John SOLOMON, Leonel Doss ([id number]) on 07/06/2019 6:15:34 PM
--- NOTE | 2019-07-06 08:09 | PROGRESS NOTE ---
DATE: 07/06/2019 OBJECTIVE: Vital signs: Temperature 98.3 degrees, heart rate 70 and in sinus rhythm, respirations 16, blood pressure 126/60, O2 saturation 96% on CPAP. She was changed to 2 liters nasal oxygen after waking up. SUBJECTIVE: She continues to feel nauseated at times and believes it is the Cardizem causing side effects. Her blood pressure has gone up this morning, 180/90. Hydralazine will be added p.o. She is to have a stress test this morning. She has been injected with dye for the study a few minutes ago. PLAN: There is a possibility for discharge if she is feeling well this afternoon and stress test does not show need for further evaluation or treatment. cc: Fazal Aden MD
[2019-07-06] MEDS ORDERED: LEXISCAN ONE ×2 (08:40→10:59)
[2019-07-06] MEDS: CARDURA PO SCH (09:50)
[2019-07-06] MEDS: PRAVACHOL PO SCH (09:50)
[2019-07-06] MEDS: THERA M PLUS PO SCH (09:50)
[2019-07-06] MEDS: CARDIZEM CD PO SCH (09:50)
[2019-07-06] MEDS: APRESOLINE PO SCH ×3 (09:50→16:28)
[2019-07-06] MEDS: ELIQUIS PO SCH ×2 (09:50→21:15)
[2019-07-06] MEDS: NEURONTIN PO SCH ×2 (09:50→21:15)
[2019-07-06] MEDS: PRILOSEC PO SCH (09:51)
--- NOTE | 2019-07-06 15:50 | Diag Imaging Result Document ---
PROCEDURE NAME: MYOCARDIAL PERF SCAN, STR/REST - 07/06/2019 INDICATION: This is a 73-year-old female with paroxysmal atrial fibrillation, hypertension and diabetes. DESCRIPTION OF PROCEDURE: The patient came into the nuclear lab and received a rest injection of technetium 99 sestamibi 14.9 mCi. Multiple tomographic views of the cardiac structures were obtained at rest. Subsequently the patient underwent a Lexiscan infusion, and 0.4 mg of Lexiscan was infused. At peak infusion injected with technetium 99 sestamibi 47.6 mCi. Multiple tomographic views of the cardiac structures were obtained following completion of the exercise protocol. SUMMARY OF ELECTROCARDIOGRAPHIC PORTION OF THE STUDY: Resting ECG shows sinus rhythm at rate of 71 beats per minute. Resting blood pressure is 150/70. Resting ECG shows sinus rhythm with no significant ST-T abnormality. Minor nonspecific ST change is noted. During the protocol, the heart rate increased to 100 beats per minute. The blood pressure went up to 148/83. At peak infusion showed sinus rhythm/sinus tachycardia. No arrhythmias noted. ECG showed no significant changes. The patient reported no symptoms. CONCLUSIONS: In summary, electrocardiographic response to infusion of Lexiscan is normal. SUMMARY OF MYOCARDIAL PERFUSION PORTION OF THE STUDY: Poststress tomographic views of the left ventricle showed a relatively focal anteroapical defect of mild severity. The rest images showed that this defect is mostly fixed. Polar plots revealed the same. There is a very small fixed apical anterior defect, more than likely related to breast attenuation artifact. The patient has breast implants, and she is large. The patient weighs 240 pounds. I do not see any convincing evidence of ischemia. Gated SPECT shows normal ejection fraction of 83%. Normal ventricular volumes. Lung/heart ratio is normal at 0.29. TID is normal at 0.97. CONCLUSIONS: In summary, this study showed: 1. Unremarkable electrocardiographic response to infusion of Lexiscan. 2. Probably normal/unremarkable post stress myocardial perfusion scan. There is no convincing scintigraphic evidence of pharmacologically induced myocardial ischemia. The trivial apical anterior defect noted on both rest and stress images is mostly fixed and likely represents breast attenuation artifact, perhaps with a slight shifting breast attenuation. 3. Normal left ventricular systolic function. Ejection fraction is 83% with normal ventricular volumes and no wall motion abnormality. 4. This study would represent relatively low risk for ischemic event. cc: MD Bruce Benito MD [facility]
[2019-07-06] MEDS ORDERED: SALINE LOCK IV FLUID XX ONE (16:51)
[2019-07-06] MEDS: ULTRAM PO PRN (19:47)
[2019-07-06] MEDS: REQUIP PO SCH (21:15)
[2019-07-07] MEDS: ELIQUIS PO SCH (08:41)
[2019-07-07] MEDS: THERA M PLUS PO SCH (08:41)
[2019-07-07] MEDS: PRAVACHOL PO SCH (08:41)
[2019-07-07] MEDS: NEURONTIN PO SCH (08:41)
[2019-07-07] MEDS: CARDURA PO SCH (08:41)
[2019-07-07] MEDS: APRESOLINE PO SCH ×3 (08:41→17:40)
[2019-07-07] MEDS: PRILOSEC PO SCH (08:41)
--- NOTE | 2019-07-07 08:46 | PROGRESS NOTE ---
DATE: 07/07/2019 OBJECTIVE: Vital signs: Temperature 97.9 degrees, heart rate 70, respirations 15, blood pressure 118/69, O2 saturation on CPAP 98%. SUBJECTIVE: The patient rested well last night. She has no nausea this morning. She believes the Cardizem was causing nausea. She was changed from Cardizem to Toprol-XL this morning. PLAN: If she is feeling well this afternoon, she will probably be discharged home. She is to ambulate as tolerated. cc: Fazal Aden MD
[2019-07-07] MEDS ORDERED: TOPROL XL PO SCH (09:00)
[2019-07-07] MEDS: TYLENOL PO PRN (11:40)
[2019-07-07 15:18] VITALS: BP 147/69
--- NOTE | 2019-07-07 19:51 | DISCHARGE SUMMARY ---
ADMISSION DATE: 07/02/2019 DISCHARGE DATE: 07/07/2019 FINAL DIAGNOSES: 1. Atrial fibrillation with rapid ventricular response. 2. Chronic kidney disease stage 2. 3. Obstructive sleep apnea. 4. Type 2 diabetes. 5. Early congestive heart failure. HISTORY OF PRESENT ILLNESS: This is the first recent [facility] admission for this 73-year- old white female who presented to the emergency room with shortness of breath and rapid heart rate. Chest x-ray showed cardiomegaly with no pleural effusion, but increased vascular congestion. INITIAL LABORATORY: Hemoglobin 12.0, hematocrit 37.5, white blood count 8000. Sodium 138, potassium 5.4, BUN 31, creatinine 2.0, glucose 152. Troponin 29. ProBNP 677. TSH 1.14. HOSPITAL COURSE: A cardiology consultation was obtained. She was on a Cardizem drip, and then the following day had cardioversion which was successful. She was placed on p.o. Cardizem. She had some nausea related to the Cardizem and wanted to change it. She was changed to Toprol-XL. She has done well with no additional nausea. She continues to be in sinus rhythm. O2 saturation has been good. She has used CPAP at night. Sugars have been stable. DISCHARGE MEDICATIONS: She is discharged home on her usual medicines plus Apresoline 25 mg t.i.d., Eliquis 5 mg b.i.d., and doxazosin 2 mg daily. She has been ambulatory and is eating well. DISPOSITION: She is discharged home to be followed in the office in 1 week. cc: Fazal Aden MD MTDD
--- NOTE | 2019-07-09 06:42 | Extremity Venous Study ---
PROCEDURE NAME: Venous U/S Bilateral Legs - 07/03/2019 STUDY: Bilateral lower extremity venous duplex study. DATE: 07/05/2019. REFERRING PHYSICIAN: Dr. Ortiz. READING PHYSICIAN: Dr. Roman. FOOD PRODUCTS SALES REPRESENTATIVE: Anshul. INDICATIONS: DVT. Comparison study is 02/08/2019. FINDINGS: The deep and superficial veins of both lower extremities were imaged throughout their course. They are compressible and patent without thrombus. INTERPRETATION: No DVT or SVT in either lower extremity, which is unchanged from the prior study on 02/08/2018. cc: MD Rui Dean MD Robert Allen, MD
== END 2019-07-07 18:15 | disposition home health service (06) | DRG 309 ==
LOC: ED 17:11 → SUATTDRO 21:53 → 2N 21:53
PROVIDERS: ADMIT Family Medicine; ATTEND Family Medicine